=== PATIENT | male | born 1985 | race Caucasian/White ===

== ENCOUNTER 2025-05-09 10:19 | Emergency (ER) | payer OTHER, SELFPAY ==
--- OUTSIDE RECORDS SUMMARY | 2025-05-09 10:20 | XMS_ITS | Continuity of Care Document ---
Author Organization [facility] Address [address] [facility] [place] [address] Phone Care Team Providers Care Warehouse Material Handler Name Role Phone Lang Moralez MD Unavailable Unavailable Advance Directives Directive Yes / No Effective Date File Name No Information Encounters Encounter Description Practice Location Reason(s) For Visit Diagnoses Date Provider Providers Copied on Encounter [facility], [address], [place], [id number], [place] tel:[phone] [facility] No Information Kirt Croft. [address] [place], [place], [address], [place]. tel:[phone] Family History Family Member Type Diagnosis Age At Onset No Information Payers Payer name Insurance type Covered libertarian ID Authoriza tion(s) No Information Social History Type Description Quantity Date Captured Comments Sex Male Smoking Status No Information Chief Complaint And Reason For Visit No Information Plan Of Treatment Date Type Action Status No Information History Of Present Illness Encounter Date Complaint History Of Prese nt Illness No Information Instructions Date Instruction Additional Infor mation No Information Assessments Type Assessment Date No Information
--- OUTSIDE RECORDS SUMMARY | 2025-05-09 10:20 | XMS_ITS | Continuity of Care Document ---
Author Organization [facility] Address [address] [facility] [address] [place] [address] Phone Care Team Providers Care Slate Trimmer Name Role Phone Cunha OD, Ede Unavailable Unavailable Advance Directives Directive Yes / No Effective Date File Name No Information Encounters Encounter Description Practice Location Reason(s) For Visit Diagnoses Date Provider Providers Copied on Encounter [facility], [address], [place], [place], [address], [place] tel:[phone] [facility] No Information 6-200 0 Cunha OD Ede. [address] , [address], [place], [address], [place]. tel:[phone] Family History Family Member Type Diagnosis Age At Onset No Information Payers Payer name Insurance type Covered alliance party ID Authoriza tion(s) Medicaid [facility] [id number] Social History Type Description Quantity Date Captured Comments Sex Male Smoking Status No Information Chief Complaint And Reason For Visit No Information Reason For Referral Reason For Referral No Information History Of Present Illness Encounter Date Complaint History Of Prese nt Illness No Information Functional Status Date Functional Assessmen t No Information Instructions Date Instruction Additional Infor mation No Information Assessments Type Assessment Date No Information Patient Care Teams Name Effective Dates (start - stop) Status Members No Information
[2025-05-09 10:30] VITALS: BP 140/99; PULSE 74; RESP 18; TEMP 36.5; O2SAT 100
[2025-05-09 10:31] VITALS: BP 140/99; PULSE 72; RESP 16; TEMP 36.5; O2SAT 100
[2025-05-09 10:49] LABS: Add Urine Microscopic? YES; Appearance Urine Clear (Clear); Glucose Urine UA Negative (Negative); Leukocyte Esterase Ur Trace LEU/UL (Negative); Nitrate Urine Negative (Negative); Non Pathogenic Casts 0-2; Specific Grav Ur 1.027 (1.001-1.035)
--- OUTSIDE RECORDS SUMMARY | 2025-05-09 10:49 | XMS_ITS | Continuity of Care Document ---
Author Organization [facility] Address [address] [facility] [place] [address] Phone Care Team Providers Care Contracts Manager Name Role Phone Lang Moralez MD Unavailable Unavailable Advance Directives Directive Yes / No Effective Date File Name No Information Encounters Encounter Description Practice Location Reason(s) For Visit Diagnoses Date Provider Providers Copied on Encounter [facility], [address], [place], [address], [place] tel:[phone] [facility] No Information Kirt Croft. [address] [place], [place], [address], [place]. tel:[phone] Family History Family Member Type Diagnosis Age At Onset No Information Payers Payer name Insurance type Covered constitution party ID Authoriza tion(s) No Information Social History [...]
--- OUTSIDE RECORDS SUMMARY | 2025-05-09 10:49 | XMS_ITS | Continuity of Care Document ---
Author Organization [facility] Address [address] [facility] [place] [address] [place] [address] Phone Care Team Providers Care Investigation Officer Name Role Phone Cunha OD, Ede Unavailable Unavailable Advance Directives Directive Yes / No Effective Date File Name No Information Encounters Encounter Description Practice Location Reason(s) For Visit Diagnoses Date Provider Providers Copied on Encounter [facility], [address], [place], [place], [address], [place] tel:[phone] SEC [facility] No Information 6-200 0 Cunha OD Ede. [address] , [address], [place], [address], [place]. tel:[phone] Family History Family Member Type Diagnosis Age At Onset No Information Payers Payer name Insurance type Covered constitution party ID Authoriza tion(s) Medicaid [facility] [id number] Social History Type Description Quantity Date Captured [...]
--- OUTSIDE RECORDS SUMMARY | 2025-05-09 10:49 | XMS_ITS | Clinical Summary ---
Author Organization [facility] Address [address] [place] [address] Phone Care Team Providers Care Precinct I Police Sergeant Name Role Phone Unavailable Primary Care Provider Unavailabl e Allergies No known active allergies Medications HYDROcodone-acet aminophen (NORCO) 5-325 mg Oral tablet Take 2 Tabs by mouth every 6 hours as needed for Pain, Moderate. 30 Tab 0 10/10/2011 Active Social History Tobacco Use Types Packs/Day Years Used Date Smoking Tobacco: Every Day Cigarettes Alcohol Use Standard Drinks/Week Comments No 0 (1 standard drink = 0.6 oz pur e alcohol) Sex and Gender Information Value Date Recorded Sex Assigned at Not on file Legal Sex Male 6:06 AM FABRIC DESIGNER Gender Identity Not on file Sexual Orientation Not on file Last Filed Vital Signs Vital Sign Reading Time Taken Comments Blood Pressure 150/80 10/10/2011 11:41 AM FABRIC DESIGNER Pulse 79 10/10/2011 11:41 AM FABRIC DESIGNER Temperature 36.3 C (97.3 F) 10/10/2011 8:00 AM FABRIC DESIGNER Respiratory Rate 17 10/10/2011 11:41 AM FABRIC DESIGNER Oxygen Saturation 100% 10/10/2011 11:41 AM FABRIC DESIGNER Inhaled Oxygen Concentration - - Weight - - Height - - Body Mass Index - - Plan of Treatment Health Maintenance Due Date Last Done Comments DTAP/TDAP/TD VACCINES (1 - Tdap) 2002 HEPATITIS B VACCINES (1 of 3 - 19+ 3-dose series) 2002 INFLUENZA VACCINE (#1) 2025 HPV VACCINES Aged Out No longer eligi ble based on patient's age to complete this topic
--- NOTE | 2025-05-09 12:13 | ED_ITS ---
HPI - General Adult General Chief complaint: Abdominal Pain Stated complaint: STD check Time Seen by Provider: 05/09/25 10:41 History of Present Illness HPI narrative: This is a 40-year-old male presenting for STD check. Patient says he had a new sexual partner last week. Since then he has been having pain on urination and abdominal discomfort. He also is concerned that he may have a bump on his lip. He has no history of STDs. He has only had 1 sexual partner in the last 6 month s. He has not have any testicle pain fevers lesions on his penis or discharge. Related Data Allergies Allergy/AdvReac Type Severity Reaction Status Date / Time No Known Allergies Allergy Verified 05/09/25 10:34 Exam Narrative: APPEARANCE: No apparent distress. Head: atraumatic. EYES: EOMI, NOSE: Atraumatic NECK: Trachea midline RESPIRATORY: No increased rate of breathing CARDIOVASCULAR: RRR, ABDOMINAL: Non-distended soft nontender : Normal external genatalia w/o lesions/sores. no pain in the testicles. MUSCULOSKELETAl: No obvious deformities NEURO: Alert. Moving 4/4 extremities SKIN:: Warm, dry. Normal color PSYCHIATRIC: Normal affect Course Vital Signs Vital signs: Vital Signs Temperature 97.7 F 05/09/25 10:30 Pulse Rate 74 05/09/25 10:30 Respiratory Rate 18 05/09/25 10:30 Blood Pressure 140/99 H 05/09/25 10:30 Pulse Oximetry 100 05/09/25 10:30 Oxygen Delivery Room Air 05/09/25 10:30 Temperature 97.7 F 05/09/25 10:31 Pulse Rate 72 05/09/25 10:31 Respiratory Rate 16 05/09/25 10:31 Blood Pressure 140/99 H 05/09/25 10:31 Pulse Oximetry 100 05/09/25 10:31 Oxygen Delivery Room Air 05/09/25 10:30 Medical Decision Making [facility] Narrative Medical decision making narrative: -Course: 40-year-old male presenting dysuria abdominal discomfort after a new partner. STD testing obtained. Urinalysis not indicative infection. Chlamydia gonorrhea and Trichomonas were negative. I was planning on treating the patient with for ureteritis with a course of doxycycline, however he absconded from the emergency department. -DDX includes but is not limited to: STI, UTI, anxiety, HSV Vital Signs Vital Signs: Vital Signs Temperature 97.7 F 05/09/25 10:30 Pulse Rate 74 05/09/25 10:30 Respiratory Rate 18 05/09/25 10:30 Blood Pressure 140/99 H 05/09/25 10:30 Pulse Oximetry 100 05/09/25 10:30 Oxygen Delivery Room Air 05/09/25 10:30 Temperature 97.7 F 05/09/25 10:31 Pulse Rate 72 05/09/25 10:31 Respiratory Rate 16 05/09/25 10:31 Blood Pressure 140/99 H 05/09/25 10:31 Pulse Oximetry 100 05/09/25 10:31 Oxygen Delivery Room Air 05/09/25 10:30 Lab Data Labs: Lab Results 05/09/25 Range/Units 10:36 Urine Color Dark yellow (Yellow) Urine Appearance Clear (Clear) Urine pH 6.0 (5.0-9.0) Ur Specific Mobile 1.027 (1.001-1.035) Urine Protein 1+ H (Negative) mg/dL Urine Glucose (UA) Negative (Negative) mg/dL Urine Ketones Trace H (Negative) mg/dL Ur Blood (Man) Negative (Negative) Urine Nitrate Negative (Negative) Urine Bilirubin Negative (Negative) Urine Urobilinogen 1.0 (<2.0) mg/dL Leukocyte Esterase Rfl Trace H (Negative) LITZY/UL Urine RBC 3-5 H (0-2) /hpf Urine WBC 0-5 (0-3) /hpf Ur Squamous Epith Cells None seen (Few) /hpf Urine Bacteria None seen /hpf Urine Casts 0-2 C. trachomatis (PCR) Not detected (NOT DETECTE) N. gonorrhoeae (PCR) Not detected (NOT DETECTE) T. vaginalis (PCR) Not detected (NOT DETECTE) Discharge Plan Discharge Clinical Impression: Urethritis Patient Disposition: Elopement After Seen by Prov Condition: Stable Patient Language: Martiniquais Follow-up/Referrals: PHYSICIAN,DATA ACQUISITION TECHNICIAN [Primary Care Provider] -
[2025-05-09 12:29] LABS: Trichomonas Vag PCR NOT DETECTED (NOT DETECTE)
== END 2025-05-09 13:30 | disposition left against medical advice (07) ==
PROVIDERS: Emergency Medicine; Emergency Provider Emergency Medicine
DX: N34.2 Other urethritis (principal); Z11.3 Encounter for screening for infections with a predominantly sexual mode of transmission
CPT/HCPCS: 81001; 87491; 87591; 87661; 99283

== ENCOUNTER 2025-05-16 20:53 | Emergency (ER) | payer OTHER, SELFPAY ==
[2025-05-16 20:53] VITALS: BP 155/90; PULSE 78; RESP 18; TEMP 36.1; O2SAT 97
--- OUTSIDE RECORDS SUMMARY | 2025-05-16 20:59 | XMS_ITS | Continuity of Care Document ---
Author Organization [facility] Address [address] [facility] [place] [address] Phone Care Team Providers Care Switch Coupler Name Role Phone Lang Moralez MD Unavailable Unavailable Advance Directives Directive Yes / No Effective Date File Name No Information Encounters Encounter Description Practice Location Reason(s) For Visit Diagnoses Date Provider Providers Copied on Encounter [facility], [address], [place], [id number], [place] tel:[phone] [facility] No Information Kirt Croft. [address] [place], [place], [address], [place]. tel:[phone] Family History Family Member Type Diagnosis Age [...]
--- OUTSIDE RECORDS SUMMARY | 2025-05-16 20:59 | XMS_ITS | Continuity of Care Document ---
Author Organization [facility] Address [address] [facility] [address] [place] [address] Phone Care Team Providers Care Drywall Hanger Name Role Phone Cunha OD, Ede Unavailable Unavailable Advance Directives Directive Yes / No Effective Date File Name No Information Encounters Encounter Description Practice Location Reason(s) For Visit Diagnoses Date Provider Providers Copied on Encounter [facility], [address], [place], [place], [address], [place] tel:[phone] [facility] No Information 6-200 0 Cunha OD Ede. [address] , [address], [place], [address], [place]. tel:[phone] Family History Family Member Type Diagnosis Age At Onset No Information Payers Payer name Insurance type Covered alliance party ID Authoriza tion(s) Medicaid [facility] [id number] Social History Type Description Quantity Date Captured [...]
--- OUTSIDE RECORDS SUMMARY | 2025-05-16 20:59 | XMS_ITS | Clinical Summary ---
Author Organization [facility] Address [address] [place] [address] Phone Care Team Providers Care Wood Cutter Name Role Phone Unavailable Primary Care Provider [...] on file Legal Sex Male 6:06 AM FLOOR REPRESENTATIVE Gender Identity Not on file Sexual Orientation Not on file Last Filed Vital Signs Vital Sign Reading Time Taken Comments Blood Pressure 150/80 10/10/2011 11:41 AM FLOOR REPRESENTATIVE Pulse 79 10/10/2011 11:41 AM FLOOR REPRESENTATIVE Temperature 36.3 C (97.3 F) 10/10/2011 8:00 AM FLOOR REPRESENTATIVE Respiratory Rate 17 10/10/2011 11:41 AM FLOOR REPRESENTATIVE Oxygen Saturation 100% 10/10/2011 11:41 AM FLOOR REPRESENTATIVE Inhaled Oxygen Concentration - - Weight - - Height - - Body Mass Index - - Plan of Treatment Health Maintenance Due Date Last Done Comments HPV VACCINES (1 - Male 3-dose series) 1998 DTAP/TDAP/TD VACCINES (1 - Tdap) 2002 HEPATITIS B VACCINES (1 of 3 - 19+ 3-dose series) 02/25 INFLUENZA VACCINE (#1) 2025
--- NOTE | 2025-05-16 21:03 | ED.GENADULT ---
HPI - General Adult General Chief complaint: Dental/Oral Stated complaint: oral Time Seen by Provider: 05/16/25 21:02 Source: patient Mode of arrival: ambulatory Limitations: no limitations History of Present Illness HPI narrative: Patient is a 40-year-old male with occasional recurrence of Lucy/thrush for the past many years from time to time. He is having a outbreak area in his gums and his lip at this time. He does not relate this to any specific issue. Onset (ago): week(s) ( One) Location: mouth Radiation: non-radiation Severity: moderate Severity scale (1-10): 4 Quality: burning Pain Consistency: constant Relieving factors: none Exacerbating factors: none Associated symptoms: denies other symptoms Treatments prior to arrival: none Related Data Allergies Allergy/AdvReac Type Severity Reaction Status Date / Time No Known Allergies Allergy Verified 05/16/25 21:11 Review of Systems Review of Systems: All systems reviewed & are unremarkable except as noted in HPI and below Constitutional: Constitutional: Reports no additional constitutional complaints Eyes: Eyes: Reports no additional eye complaints ENT: Reports system reviewed and no additional complaints, except as documented Cardiovascular: Cardiovascular: Reports no additional cardiovascular complaints Respiratory: Respiratory: Reports no additional respiratory complaints Gastrointestinal: Gastrointestinal: Reports no additional gastrointestinal complaints Genitourinary: Genitourinary: Reports no additional male genitourinary complaints Musculoskeletal: Musculoskeletal: Reports no additional musculoskeletal complaints Integumentary/Breasts: Skin/Breast: Reports system reviewed and no additional complaints, except as docu Neurologic: Reports system reviewed and no additional complaints, except as documented Psychiatric: Psychiatric: Reports no additional psychiatric complaints Endocrine: Endocrine: Reports no additional endocrine complaints Hematologic/Lymphatic: Hematologic/Lymphatic: Reports no additional hematologic/lymphatic complaints Allergic/Immunologic: Allergic/Immunologic: Reports no additional allergic/immunologic complaints Exam Const: General: healthy appearing Nutritional Appearance: well nourished Orientation/consciousness: patient oriented x3 HENMT: Head: normal to inspection Ears: external ears normal Face/Nose/Sinus: Normal external nose present Mouth: No Normal oral and palatal mucosa present Other: patient has white thickness to the gums inferiorly of the mandibular gums and it reaches to the back of the oropharynx in a linear fashion; further, there is a left lower lip inflammation and nodularity with irritation and inflammation correlating with continuation of the Lucy Eyes: Conjunctivae: conjunctivae normal Pupils: Equal, round and reactive pupils present EOM: EOMs intact bilaterally Neck: Neck: normal visual inspection Chest: Chest palpation & inspection: normal inspection of the chest Resp: Effort & Inspection: normal respiratory effort and not labored Auscultation: clear to auscultation bilaterally and no crackles Cardio: Rate: regular rate Rhythm: regular rhythm Heart sounds: no murmurs GI: Inspection: non-distended GI Palp: Yes Soft to palpation and No Tenderness to palpation present (GI) Auscultation: normal bowel sounds : General: Yes bladder normal to palpation Back/Spine/Pelvis: Back: no CVA tenderness Skin: General skin exam: normal color Rashes: no rashes Wounds: no wounds Other: see ENT exam Neuro: General: patient oriented x3, moves all extremities and no meningeal signs Cranial nerves: Yes Nystagmus not present Extrem: General: normal to inspection Psych: Mental Status: mental status grossly normal Affect: normal affect Attitude: cooperative Course Vital Signs Vital signs: Vital Signs Temperature 36.1 C L 05/16/25 20:53 Pulse Rate 78 05/16/25 20:53 Respiratory Rate 18 05/16/25 20:53 Blood Pressure 155/90 H 05/16/25 20:53 Pulse Oximetry 97 05/16/25 20:53 Oxygen Delivery Room Air 05/16/25 20:53 Temperature 36.1 C L 05/16/25 20:53 Pulse Rate 78 05/16/25 20:53 Respiratory Rate 18 05/16/25 20:53 Blood Pressure 155/90 H 05/16/25 20:53 Pulse Oximetry 97 05/16/25 20:53 Oxygen Delivery Room Air 05/16/25 20:53 Medical Decision Making [facility] Narrative Medical decision making narrative: patient is a 40-year-old male with a left lower lip and lower gum candidal infection. He gets this from time to time. We will use nystatin liquid and Diflucan oral. Vital Signs Vital Signs: Vital Signs Temperature 36.1 C L 05/16/25 20:53 Pulse Rate 78 05/16/25 20:53 Respiratory Rate 18 05/16/25 20:53 Blood Pressure 155/90 H 05/16/25 20:53 Pulse Oximetry 97 05/16/25 20:53 Oxygen Delivery Room Air 05/16/25 20:53 Temperature 36.1 C L 05/16/25 20:53 Pulse Rate 78 05/16/25 20:53 Respiratory Rate 18 05/16/25 20:53 Blood Pressure 155/90 H 05/16/25 20:53 Pulse Oximetry 97 05/16/25 20:53 Oxygen Delivery Room Air 05/16/25 20:53 Discharge Plan Discharge Clinical Impression: Candidiasis of mouth Patient Disposition: Home Condition: Stable Instructions: Oral Candidiasis (ED) Additional Instructions: please follow-up with the primary doctor in the next week. Further workup could be done to solve why you keep getting thrush in the oral cavity. Talk to your primary doctor about further workup. Patient Language: Persian Prescriptions: New nystatin 100,000 unit/mL suspension 5 ml PO QID PRN (Reason: thrush) Qty: 120 0RF Rx Instructions: swish and swallow fluconazole [Diflucan] 100 mg tablet 200 mg PO DAILY 7 Days Qty: 14 0RF Follow-up/Referrals: UNKNOWN,DOCTOR [Primary Care Provider] - Time of Disposition: 21:16
--- NOTE | 2025-05-16 21:11 | PC.NURSE ---
Pt requesting paper prescriptions as he is a patient of the [facility]. ERP aware.
--- OUTSIDE RECORDS SUMMARY | 2025-05-16 21:18 | XMS_ITS | Continuity of Care Document ---
Author Organization [facility] Address [address] [facility] [place] [address] Phone Care Team Providers Care Transfer And Pumphouse Operator Chief Name Role Phone Lang Moralez MD Unavailable Unavailable Advance Directives Directive Yes / No Effective Date File Name No Information Encounters Encounter Description Practice Location Reason(s) For Visit Diagnoses Date Provider Providers Copied on Encounter [facility], [address], [place], [address], [place] tel:[phone] [facility] No Information Kirt Croft. [address] [place], [place], [address], [place]. tel:[phone] Family History Family Member Type Diagnosis Age At Onset No Information Payers Payer name Insurance type Covered democrat ID Authoriza tion(s) No Information Social History [...]
--- OUTSIDE RECORDS SUMMARY | 2025-05-16 21:18 | XMS_ITS | Continuity of Care Document ---
Author Organization [facility] Address [address] [facility] [address] [place] [address] Phone Care Team Providers Care Gluer Machine Setup Operator Name Role Phone Cunha OD, Ede Unavailable Unavailable Advance Directives Directive Yes / No Effective Date File Name No Information Encounters Encounter Description Practice Location Reason(s) For Visit Diagnoses Date Provider Providers Copied on Encounter [facility], [address], [place], [place], [address], [place] tel:[phone] SEC [facility] No Information 6-200 0 Cunha OD Ede. [address] , [address], [place], [address], [place]. tel:[phone] Family History Family Member Type Diagnosis Age At Onset No Information Payers Payer name Insurance type Covered democrat ID Authoriza tion(s) Medicaid [facility] [id number] Social History Type Description Quantity Date Captured [...]
[2025-05-16] MEDS: FLUCONAZOLE 150 MG TABLET 300 MG PO (21:25)
[2025-05-16] MEDS: NYSTATIN 100,000 UNITS/ML SUSP 5 ML ORAL.SUSP PO (21:26)
== END 2025-05-16 21:35 | disposition home or self-care (01) ==
LOC: CHSED 21:17
PROVIDERS: Emergency Provider Emergency Medicine
DX: B37.0 Candidal stomatitis (principal)
CPT/HCPCS: 99283; A9270